=== PATIENT | female | born 1975 | race Caucasian/White ===

== ENCOUNTER → 2017-01-08 | Outpatient (CLI) | payer OTHER | LOC: FIMAGING 11:02 | DX: Z12.31 Encounter for screening mammogram for malignant neoplasm of breast (principal); Z80.3 Family history of malignant neoplasm of breast | CPT/HCPCS: G0202 ==

== ENCOUNTER → 2018-01-18 | Outpatient (CLI) | payer OTHER | LOC: FIMAGING 15:48 | PROVIDERS: ATTEND Internal Medicine | DX: Z12.31 Encounter for screening mammogram for malignant neoplasm of breast (principal); Z80.3 Family history of malignant neoplasm of breast ==

== ENCOUNTER 2018-10-22 11:51 | Emergency (ER) | payer OTHER ==
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
[2018-10-22 13:41] VITALS: BP 148/94
== END 2018-10-22 13:40 | disposition home or self-care (01) ==
LOC: EDUNIT#
PROC: 0PSHXZZ Reposition Right Radius, External Approach (ICD-10-PCS; principal; 2018-10-22)
DX: S52.591A Other fractures of lower end of right radius, initial encounter for closed fracture (principal); S62.651A Nondisplaced fracture of middle phalanx of left index finger, initial encounter for closed fracture; V49.49XA Driver injured in collision with other motor vehicles in traffic accident, initial encounter; Y92.9 Unspecified place or not applicable; Y93.9 Activity, unspecified; Y99.9 Unspecified external cause status

== ENCOUNTER → 2018-10-25 | Outpatient (CLI) | payer OTHER | LOC: FIMAGING 16:20 | PROVIDERS: ATTEND Orthopaedic Surgery Hand Surgery | DX: S52.591A Other fractures of lower end of right radius, initial encounter for closed fracture (principal); S62.651A Nondisplaced fracture of middle phalanx of left index finger, initial encounter for closed fracture; Z01.818 Encounter for other preprocedural examination ==

== ENCOUNTER → 2019-03-31 | Outpatient (CLI) | payer OTHER | LOC: FIMAGING 09:58 ==

== ENCOUNTER → 2019-04-14 | Outpatient (CLI) | payer OTHER | LOC: FIMAGING 08:47 ==